=== PATIENT | female | born 1960 | race Asian ===

== ENCOUNTER 2019-06-22 18:18 | Emergency (ER) | payer SELFPAY ==
[~2019-06-22] VITALS: Ht 165.1 cm; Wt 51.7 kg
[2019-06-22 18:23] VITALS: Ht 165.1 cm; Wt 51.7 kg
[2019-06-22 19:59] VITALS: BP 133/78
== END 2019-06-22 19:59 | disposition home or self-care (01) ==
LOC: ED 18:18
DX: H10.89 Other conjunctivitis (principal)